=== PATIENT | male | born 1970 | race Two or more races ===

== ENCOUNTER 2020-07-31 23:43 | Outpatient (CLI) | payer OTHER | END 2020-07-31 23:44 | disposition home or self-care (01) | LOC: PPH VACUNA 23:43 | DX: Z23 Encounter for immunization (principal) ==

== ENCOUNTER 2020-12-31 09:06 | Outpatient (CLI) | payer OTHER | END 2020-12-31 17:23 | disposition home or self-care (01) | LOC: PPH VACUNA 09:06 | PROVIDERS: ATTEND Emergency Medicine Pediatric Emergency Medicine | DX: Z23 Encounter for immunization (principal) ==